=== PATIENT | female | born 1950 | race Caucasian/White ===

== ENCOUNTER → 2024-04-06 | Outpatient (CLI) | payer OTHER, SELFPAY ==
--- NOTE | 2024-04-06 11:27 | XR_ITS ---
Examination: PA lateral chest 2 views TECHNIQUE: Upright PA lateral chest 2 views Exam date and time: April 06, 2024 1149 hours INDICATIONS: Recent diagnosis Covid, acute coughing congestion this week FINDINGS: Moderate hyperexpansion Normal heart size Parenchymal disease in the right infrahilar region consistent with pneumonia No pulmonary edema IMPRESSION: Mild right infrahilar pneumonia
== END | disposition home or self-care (01) ==
PROVIDERS: PCP Family Medicine; Referring Provider Family Medicine; Visit Provider Family Medicine
DX: J18.9 Pneumonia, unspecified organism (principal); U07.1 COVID-19
CPT/HCPCS: 71046

== ENCOUNTER → 2024-04-20 | Outpatient (CLI) | payer OTHER, SELFPAY ==
--- NOTE | 2024-04-20 13:21 | XR_ITS ---
Examination: PA lateral chest 2 views TECHNIQUE: Upright PA lateral chest 2 views Exam date and time: April 20, 2024 1415 hours INDICATIONS: Pneumonia right base on chest film April 06, 2024 FINDINGS: Normal heart size Significant hyperexpansion No current pneumonia Prominent osteopenia IMPRESSION: Pneumonia has cleared
== END | disposition home or self-care (01) ==
LOC: CDIM 13:02
PROVIDERS: PCP Family Medicine; Referring Provider Registered Nurse; Visit Provider Registered Nurse
DX: J18.9 Pneumonia, unspecified organism (principal)
CPT/HCPCS: 71046

== ENCOUNTER → 2024-05-21 | Outpatient (CLI) | payer OTHER, SELFPAY ==
--- NOTE | 2024-05-21 13:15 | XR_ITS ---
Examination: Screening digital mammography, bilateral Computer aided detection 3-D breast Tomosynthesis, bilateral Date and time of exam: 05/21/2024, 1:11 PM Comparisons: March 2022, December 2022 Indications: Screening Technique: Nonmagnified MLO, CC views of the breasts to been obtained, reconstructed from 3-D Tomosynthesis images. R2 computer aided detection program utilized for evaluation of suspicious masses and/or abnormal calcifications. 3-D Tomosynthesis images obtained. Technologist: Findings: There are scattered areas of fibroglandular density. Grouped amorphous calcifications left retroareolar region best seen on the CC view. No evidence of abnormal masses or suspicious calcifications. Impression: Grouped amorphous calcifications left retroareolar region. Spot magnification views left breast recommended. Patient is overdue for follow-up evaluation of probably benign right breast mass at 9:00 recommended January 14, 2023. Right breast ultrasound recommended. BI-RADS category 0: Incomplete assessment; need additional imaging evaluation
== END | disposition home or self-care (01) ==
LOC: CDIM 13:03
PROVIDERS: Referring Provider Registered Nurse; Visit Provider Registered Nurse
DX: Z12.31 Encounter for screening mammogram for malignant neoplasm of breast (principal); R92.8 Other abnormal and inconclusive findings on diagnostic imaging of breast
CPT/HCPCS: 77063; 77067

== ENCOUNTER → 2024-06-06 | Outpatient (CLI) | payer OTHER, SELFPAY ==
--- NOTE | 2024-06-06 12:30 | XR_ITS ---
Examination: Breast ultrasound, unilateral, right complete Date and time of exam: June 06, 2024 1221 hrs. Indications: Strong family history breast cancer, mother, sister, mammogram the 2023 11:00 nodule Technique: Real-time brewer scale ultrasonographic imaging performed right breast including all 4 quadrants as well as nipple retroareolar and axillary region. Findings: 12:00 circumscribed mass 4 x 4 mm 9:00 circumscribed mass 8 x 5 mm 9:00 oval mass circumscribed 4 x 4 millimeter Impression: BI-RADS Category 3: Probably benign findings. One additional 6 month right breast sonogram follow-up is needed
--- NOTE | 2024-06-06 13:00 | XR_ITS ---
Examination: Diagnostic digital mammography, unilateral, left Computer aided detection 3-D breast Tomosynthesis, unilateral Date and time of exam: 06/06/2024, 1:01 PM Comparisons: December 2022, April 2024 Indications: Technique: Nonmagnified MLO, CC views of the left breast have been obtained, reconstructed from 3-D Tomosynthesis images. R2 computer aided detection program utilized for evaluation of suspicious masses and/or abnormal calcifications. 3-D Tomosynthesis images obtained. Technologist: Findings: There are scattered areas of fibroglandular density. Spot magnification views demonstrate benign-appearing vascular calcifications. No evidence of suspicious grouping or morphology.. Impression: BI-RADS category 2: Benign findings Recommend 1 year follow-up mammogram
== END | disposition home or self-care (01) ==
PROVIDERS: PCP Registered Nurse; Referring Provider Registered Nurse; Visit Provider Registered Nurse
DX: R92.321 Mammographic fibroglandular density, right breast (principal); R92.1 Mammographic calcification found on diagnostic imaging of breast; Z80.3 Family history of malignant neoplasm of breast
CPT/HCPCS: 76641; 77061; 77065; G0279

== ENCOUNTER → 2024-11-15 | Outpatient (CLI) | payer OTHER, SELFPAY | END | disposition home or self-care (01) | LOC: SLDO 14:46 | PROVIDERS: PCP Family Medicine; Referring Provider Nurse Practitioner Family; Visit Provider Nurse Practitioner Family | DX: N30.00 Acute cystitis without hematuria (principal) | CPT/HCPCS: 87077; 87086; 87186 ==

== ENCOUNTER → 2024-12-21 | Outpatient (CLI) | payer OTHER, SELFPAY ==
--- NOTE | 2024-12-21 09:44 | XR_ITS ---
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
--- NOTE | 2024-12-21 09:44 | XR_ITS ---
EXAMINATION: Ankle, left 3 views . Technique: Ankle AP, oblique, lateral 3 views Date and time of exam: NovemberDecember 21, 2024, 10:00 AM INDICATIONS: Left ankle pain one week. FINDINGS: Moderate osteopenia. No fracture or dislocation. 5 mm plantar bony calcaneal spur. Ossification of the plantar fascia Impression: 5 mm plantar bony calcaneal spur. Ossification in the plantar fascia
== END | disposition home or self-care (01) ==
PROVIDERS: PCP Family Medicine; Referring Provider Registered Nurse; Visit Provider Registered Nurse
DX: M19.072 Primary osteoarthritis, left ankle and foot (principal); M19.071 Primary osteoarthritis, right ankle and foot; M21.612 Bunion of left foot; M72.2 Plantar fascial fibromatosis; M77.32 Calcaneal spur, left foot; M61.572 Other ossification of muscle, left ankle and foot
CPT/HCPCS: 73610; 73630

== ENCOUNTER → 2025-01-07 | Outpatient (BNVA) | payer OTHER, SELFPAY | END | disposition home or self-care (01) | PROVIDERS: PCP Family Medicine; Referring Provider Family Medicine; Visit Provider Urology Female Pelvic Medicine and Reconstructive Surgery | DX: N81.10 Cystocele, unspecified (principal); N39.0 Urinary tract infection, site not specified; N95.2 Postmenopausal atrophic vaginitis | CPT/HCPCS: 99212; G0463 ==